=== PATIENT | female | born 1995 | race Hispanic/Latino ===

== ENCOUNTER 2017-08-04 16:47 | Emergency (ER) | payer SELFPAY ==
--- NOTE | 2017-08-04 17:32 | RAD ---
RIGHT KNEE 4 VIEWS: HISTORY: Right knee pain, injured playing soccer. FINDINGS: No fracture or dislocation is seen. No definite joint effusion is identified. POS: [facility]
== END 2017-08-04 18:18 | disposition home or self-care (01) ==
LOC: ERS 16:47
DX: M25.561 Pain in right knee (principal); X50.1XXA Overexertion from prolonged static or awkward postures, initial encounter; Y93.66 Activity, soccer